=== PATIENT | female | born 1950 | race Two or more races ===

== ENCOUNTER 2018-09-03 11:29 | Emergency (ER) | payer MEDICARE ==
[~2018-09-03] VITALS: Ht 154.9 cm; Wt 89.4 kg
[2018-09-03 11:34] VITALS: BP 129/91; Ht 154.9 cm; Wt 89.4 kg
== END 2018-09-03 13:12 | disposition home or self-care (01) ==
LOC: ED 11:29
DX: S39.012A Strain of muscle, fascia and tendon of lower back, initial encounter (principal); J20.8 Acute bronchitis due to other specified organisms; X58.XXXA Exposure to other specified factors, initial encounter; Y93.89 Activity, other specified; Y92.89 Other specified places as the place of occurrence of the external cause; Y99.8 Other external cause status
CPT/HCPCS: Q0092

== ENCOUNTER 2019-07-23 07:53 | Emergency (ER) | payer MEDICARE ==
[~2019-07-23] VITALS: Ht 154.9 cm; Wt 88.9 kg
[2019-07-23 08:01] VITALS: Ht 154.9 cm; Wt 88.9 kg
[2019-07-23 10:28] VITALS: BP 151/87
== END 2019-07-23 10:28 | disposition home or self-care (01) ==
LOC: ED 07:53
DX: R05 Cough (principal)